=== PATIENT | male | born 1950 | race Caucasian/White ===

== ENCOUNTER 2017-04-24 13:45 | Outpatient (POV) | payer MEDICARE, SELFPAY | END 2017-04-24 15:43 | disposition home or self-care (01) | PROVIDERS: Family Provider Emergency Medicine; PCP Emergency Medicine; Visit Provider Urology | DX: R35.0 Frequency of micturition (principal); C62.12 Malignant neoplasm of descended left testis | CPT/HCPCS: 81002; 99213 ==